=== PATIENT | female | born 1960 | race Two or more races ===

== ENCOUNTER 2025-05-02 11:46 | Emergency (ER) | payer OTHER ==
[~2025-05-02] VITALS: Ht 167.6 cm; Wt 69.9 kg
[2025-05-02] MEDS ORDERED: MAXALT10 MG PO (12:29)
[2025-05-02] MEDS ORDERED: LYRICA50 MG PO (12:30)
[2025-05-02] MEDS ORDERED: [UNRECOGNIZED DRUG - OTHER] PO (12:31)
[2025-05-02] MEDS ORDERED: PROTONIX40 MG PO (12:31)
[2025-05-02] MEDS ORDERED: FOLIC ACID1 MG PO (12:32)
[2025-05-02] MEDS ORDERED: ZANAFLEX4 M1 PO (12:32)
[2025-05-02] MEDS ORDERED: TRAMADOL HCL25 MG PO (12:33)
[2025-05-02] MEDS ORDERED: PIROXICAM10 MG PO (12:33)
[2025-05-02] MEDS ORDERED: 0.9 % SODIUM CHLORIDE 1,000 ML IV ONE ×2 (13:00→13:15)
[2025-05-02] MEDS ORDERED: MORPHINE SULFATE 4 MG/ML CARTRIDGE IV ONE (13:15)
[2025-05-02] MEDS ORDERED: METOCLOPRAMIDE HCL 5 MG/ML VIAL IM ONE (13:15)
[2025-05-02] MEDS ORDERED: HYOSCYAMINE SULFATE 0.125 MG TAB.SUBL SL ONE (13:15)
[2025-05-02 13:48] LABS: BASO % 0.4 % (0.1-1.2); EOS # 0.06 (0.04-0.54); EOS % 0.8 % (0.7-7.0); LYMPH # 2.17 (1.18-3.74); LYMPH % 29.6 % (19.3-53.1); MEAN PLATELET VOLUME 9.30 fl (9.4-12.4); MONO # 0.62 (0.24-0.82); MONO % 8.5 % (4.7-12.5); NEUT # 4.44 (1.56-6.13); NEUT % 60.6 % (34.0-71.1); RED CELL DISTRIBUTION WIDTH 12.1 % (11.6-14.4)
[2025-05-02] MEDS ORDERED: METOCLOPRAMIDE HCL 5 MG/ML VIAL ONE (13:48)
[2025-05-02] MEDS ORDERED: HYOSCYAMINE SULFATE 0.125 MG TAB.SUBL ONE (13:48)
[2025-05-02 14:22] LABS: ALT/SGPT 73.0 U/L (12-78); AST/SGOT 21.0 U/L (15-37); BILIRUBIN TOTAL 0.96 mg/dL (0.3-1.2); BUN CREA RATIO 20.0 (7.0-25.0); CREATININE SERUM 0.71 mg/dL (0.55-1.02); GFR 83.14; GLOBULINA 3.6 G/DL (2.4-3.5); GLUCOSE FASTING 110.0 mg/dL (65-100); OSMOLALITY SERUM 282.0 MOSM/KG (275-295)
[2025-05-02 15:11] LABS: URINE APPEARANCE Clear; URINE BILIRRUBIN Small (NEGATIVE); URINE BLOOD Negative; URINE COLOR Dark Yellow; URINE GLUCOSE Negative (NEGATIVE); URINE KETONE 15 (NEGATIVE); URINE LEUKOCYTE Negative; URINE NITRATE Negative; URINE PROTEIN Trace (NEGATIVE); URINE UROBILINOGEN 1.0 E.U./dl
[2025-05-02 15:12] LABS: URINE BACTERIA 190.7 uL (0.0-1933); URINE EPITHELIAL CELLS 15.5 uL (0.0-38.8); URINE RBC 34.7 uL (0.0-20.8); URINE WBC 8.4 uL (0.0-23.2)
[2025-05-02 15:22] LABS: URINE CAST 0.14 uL (0.0-1.40)
[2025-05-02] MEDS ORDERED: PANTOPRAZOLE SODIUM 40 MG in 0.9 % SODIUM CHLORIDE 8 ML IV PUSH STA (17:47)
== END 2025-05-02 20:19 | disposition home or self-care (01) ==
LOC: ER 11:47
PROVIDERS: General Practice
DX: K52.9 Noninfective gastroenteritis and colitis, unspecified (principal); Z88.9 Allergy status to unspecified drugs, medicaments and biological substances
CPT/HCPCS: 36415; 74176; 96365; 96366; 96372; 99284; J2270; J2765; J3490; J7030